=== PATIENT | female | born 1990 | race Two or more races ===

== ENCOUNTER 2025-06-06 22:06 | Emergency (ER) | payer OTHER ==
[~2025-06-06] VITALS: Ht 160 cm; Wt 87.1 kg
[2025-06-06 23:16] VITALS: BP 110/80; O2SAT 99
[2025-06-07] MEDS ORDERED: KETOROLAC TROMETHAMINE 30 MG VIAL IV STA (01:56)
[2025-06-07] MEDS ORDERED: ORPHENADRINE CITRATE 30 MG/ML AMPUL IV STA (01:56)
[2025-06-07 03:50] LABS: BASO % 0.7 % (0.1-1.2); EOS # 0.12 (0.04-0.54); EOS % 1.3 % (0.7-7.0); LYMPH # 4.48 (1.18-3.74); LYMPH % 47.1 % (19.3-53.1); MEAN PLATELET VOLUME 9.70 fl (9.4-12.4); MONO # 0.57 (0.24-0.82); MONO % 6.0 % (4.7-12.5); NEUT # 4.26 (1.56-6.13); NEUT % 44.7 % (34.0-71.1); RED CELL DISTRIBUTION WIDTH 13.0 % (11.6-14.4)
[2025-06-07 04:09] LABS: BUN CREA RATIO 13.0 (7.0-25.0); CREATININE SERUM 0.82 mg/dL (0.55-1.02); GFR 80.79; GLUCOSE FASTING 88.0 mg/dL (65-100); OSMOLALITY SERUM 286.0 MOSM/KG (275-295)
[2025-06-07] MEDS ORDERED: MELOXICAM15 MG PO (04:56)
== END 2025-06-07 05:29 ==
LOC: ER 22:07
PROVIDERS: General Practice
DX: R51.9 Headache, unspecified (principal); R11.0 Nausea; M54.2 Cervicalgia